=== PATIENT | female | born 1950 | race Caucasian/White ===

== ENCOUNTER 2024-07-11 16:30 | Outpatient (RCR) | payer MEDICARE, OTHER, SELFPAY | END 2024-08-13 11:29 | disposition home or self-care (01) | LOC: PT 16:30 | PROVIDERS: Visit Provider Physical Medicine & Rehabilitation | DX: R26.9 Unspecified abnormalities of gait and mobility (principal) | CPT/HCPCS: 97110; 97112; 97163 ==

== ENCOUNTER 2024-07-18 14:49 | Emergency (ER) | payer MEDICARE, OTHER, SELFPAY ==
[2024-07-18 15:15] VITALS: BP 173/88; PULSE 112; RESP 20; TEMP 36.7; O2SAT 95; BMI 31.0
[2024-07-18 15:25] LABS: Apearance,Urine Clear (Clear); Color,Urine Dark Yellow (Yellow)
[2024-07-18 15:26] LABS: Bilirubin,Urine 1+ (Negative); Blood, Urine 3+ (Negative); Glucose,Urine (UA) Negative (Negative); Ketones,Urine TRACE (Negative); Protein,Urine 3+ (Negative); Specific Gravity, Urine 1.025 (1.005-1.030); UTC Leukocyte Esterase,Urine 1+ (Negative); UTC Nitrate,Urine Negative (Negative); Urobilinogen,Urine 0.2 EU/dl (0.2)
--- NOTE | 2024-07-18 15:30 | ED_ITS ---
Discharge Plan Disposition Patient Disposition: Home, Self-Care Condition: Good Prescriptions Prescriptions: New sulfamethoxazole-trimethoprim [Bactrim] 400-80 mg tablet 1 tab PO BID 5 Days Qty: 10 0RF No Action hydrocodone-acetaminophen 7.5-325 mg tablet 1 tab PO DAILY Patient Comments: TAKE 1 TABLET BY MOUTH ONCE DAILY FOR 30 DAYS furosemide 40 mg Tablet 40 mg PO DAILY sucralfate 1 gram Tablet 1 g PO BID alendronate 70 mg Tablet 70 mg PO WEEKLY hydroxyzine HCl 50 mg Tablet 50 mg PO HS levetiracetam 250 mg Tablet 250 mg PO BID cyanocobalamin (vitamin B-12) 1,000 mcg/mL Solution 1,000 mcg IM WEEKLY duloxetine [Cymbalta] 30 mg Capsule,Delayed Release(Dr/Ec) 30 mg PO DAILY duloxetine [Cymbalta] 60 mg Capsule,Delayed Release(Dr/Ec) 60 mg PO DAILY Trulicity 0.75 mg/0.5 mL Pen Injector 0.75 mg SQ WEEKLY Referrals Follow up/Referrals: Provider,Referral, MD [Primary Care Provider] - See instructions Activity Restrictions/Add. Instructions Additional Instructions/Restrictions: *Increase fluids. Water not Soda or Tea *Start antibiotic immediately and be sure to take as ordered for the FULL length of time although you should start to see improvement over the next 48 hours *Be SURE to follow up anytime for new or worsening symptoms with your family doctor. AND in 48 hours for urine culture results with your family doctor, if you do not have a doctor then you may call back to the [facility] for urine culture results and further treatment. We do recommend that you choose and establish care with a Primary Care Physician. ?AND follow up with them ?in 10-14 days to repeat UA to ensure infection is resolved and blood no longer present *Be sure to let your PCP know that we sent urine cultures from the [facility] so they can follow up to ensure that you area the on the correct antibiotic Call your doctor office and make appointment for 48 hours (2 days from today) ?to follow up and get the results of your urine culture and further treatment Monitor your blood sugars as instructed Straight to ER if any worsening of symptoms or any life threatening symptoms Clinical Impressions Clinical Impression: UTI (urinary tract infection) Qualifiers: Urinary tract infection type: site unspecified Hematuria presence: with hematuria Qualified Code(s): N39.0 - Urinary tract infection, site not specified Instructions Patient Instructions: DI for Urinary Tract Infection (UTI), DI for COVID-19 (Suspected or Confirmed ) Print Language Print Language: Bengali Discharge ED Provider: Rose Mary Crowe [facility] HPI General Stated complaint: weak, soa, poss uti Mode of Arrival: Ambulatory Source of Information: Patient Limitations: No Limitations Time Seen by Provider: 07/18/24 15:30 Description of Symptoms (Recalled from Triage Doc. by RN): PATIENT C/O VOMITING, FEELING LIGHT-HEADED, CHILLS, AND REPORTS THAT HER URINE IS DARK/LAURA HEENT Symptoms (Recalled from RN notes): Yes Resp Symptoms (Recalled from RN notes): No Skin Symptoms (Recalled from RN notes): No MS Symptoms (Recalled from RN notes): No Functional Status (Recalled from RN notes): WNL History of Present Illness Provider Complaint: Patient states that she is worried that she may have COVID she hasnt been feeling well for the last couple of days with body aches, chills, nausea, and had a low grade fever and her friends brother is taking care of sick family member and she wanted to get tested for COVID States also she noticed her urine was looking dark and she sometimes gets UTI's Wanted to get checked for that too Related Data Home Medications ?Medication ?Instructions ?Recorded ?Confirmed alendronate 70 mg tablet 70 mg PO WEEKLY 07/18/24 07/18/24 cyanocobalamin (vitamin B-12) 1,000 mcg IM WEEKLY 07/18/24 07/18/24 1,000 mcg/mL injection solution dulaglutide 0.75 mg/0.5 mL 0.75 mg SQ WEEKLY 07/18/24 07/18/24 subcutaneous pen injector (Trulicity) duloxetine 30 mg capsule,delayed 30 mg PO DAILY 07/18/24 07/18/24 release (Cymbalta) duloxetine 60 mg capsule,delayed 60 mg PO DAILY 07/18/24 07/18/24 release (Cymbalta) furosemide 40 mg tablet 40 mg PO DAILY 07/18/24 07/18/24 hydrocodone 7.5 mg-acetaminophen 1 tab PO DAILY 07/18/24 07/18/24 325 mg tablet hydroxyzine HCl 50 mg tablet 50 mg PO HS 07/18/24 07/18/24 levetiracetam 250 mg tablet 250 mg PO BID 07/18/24 07/18/24 sucralfate 1 gram tablet 1 g PO BID 07/18/24 07/18/24 Previous Rx's ?Medication ?Instructions ?Recorded sulfamethoxazole 400 1 tab PO BID 5 days #10 tabs 07/18/24 mg-trimethoprim 80 mg tablet (Bactrim) Allergies Allergy/AdvReac Type Severity Reaction Status Date / Time latex Allergy Verified 07/18/24 15:25 Worker's Comp Is this a Worker's Comp case?: [facility] Dis[facility]: The information contained in this section may have been updated after the patient was seen, as this information can be updated by other users. Medical History (Updated 07/18/24 @ 15:48 by Rose Mary Crowe APRN) Urinary tract infection Depression Anxiety Diabetes mellitus, type 2 History of stroke Surgical History (Updated 07/18/24 @ 15:27 by Erinn Honeycutt RN) History of hysterectomy Social History Smoking Status: Unknown if ever smoked alcohol intake: never current occupational status: unemployed Travel in the last 8 weeks: None ROS Obtained: Yes All systems reviewed & no additional complaints except as documented and Yes Systems reviewed as appropriate & no additional complaints except as documented Constitutional Constitutional: Reports system reviewed and no additional complaints, except as documented, Reports as per HPI, Reports body ache, Reports chills and Reports fe xochilt(s) ENT Ears, Nose, Mouth, and Throat: Reports system reviewed and no additional complaints, except as documented, Reports as per HPI, Reports nasal congestion, Reports nasal discharge and Reports sore throat (throat feels itchy) Cardiovascular Cardiovascular: Reports system reviewed and no additional complaints, except as documented and Reports as per HPI Respiratory Respiratory: Reports system reviewed and no additional complaints, except as do cumented and Reports as per HPI Gastrointestinal Gastrointestingal: Reports system reviewed and no additional complaints, except as documented, as per HPI, nausea and vomiting (not today); Denies abdominal pain, cramping or diarrhea Genitourinary Female Genitourinary: Reports system reviewed and no additional complaints, except as documented, Reports as per HPI, Reports urinary urgency and Reports other (urine looks dark ) Physical Exam General General appearance: alert and in no apparent distress ENT ENT exam: Present mucous membranes moist Expanded ENT Exam Nose exam: Absent sinus tenderness Throat exam: Present other (mild pharyngeal erythema noted) Respiratory Respiratory exam: Present normal lung sounds bilaterally; Absent respiratory distress or wheezes Cardiovascular Cardiovascular exam: Present regular rate, normal rhythm and tachycardia Neurological Exam Neurological exam: Present alert, oriented X3 and normal gait Medical Decision Making Jareth Inquiry Pt receiving controlled substance: No Jareth was queried for this patient: No Vital Signs: 07/18/24 15:15 Temperature 98.0 F Temperature Source Oral Pulse Rate [Left Brachial] 112 H Respiratory Rate 20 Blood Pressure [Left Arm] 173/88 H Blood Pressure Mean [Left Arm] 116 Blood Pressure Source [Left Arm] Automatic Cuff Blood Pressure Position [Left Arm] Sitting 02 Sat by Pulse Oximetry 95 Oxygen Delivery Method Room Air Lab Data Lab results reviewed: Yes I reviewed the patient's lab results. Lab Results 07/18/24 15:24: Urine Color Dark yellow, Urine Appearance Clear, Urine pH 5.0, Ur Specific [place] 1.025, Urine Protein 3+, Urine Glucose (UA) Negative, Urine Ketones Trace, Urine Blood 3+, Urine Nitrate Negative, Urine Bilirubin 1+ A, Urine Urobilinogen 0.2, Ur Leukocyte Esterase 1+ A Orders (Tests/Meds): ORDERS Category Date Time Status Urine Culture Stat Micro 07/18/24 15:10 Received Medical Decision Narrative: 3+ protien noted in urine, patient is a diabetic however discussed with patient about transfer to the ED for more extensive work up and evaluation and she declined
[2024-07-18 15:50] VITALS: BP 173/88; PULSE 112; RESP 20; TEMP 36.7; O2SAT 95
[2024-07-18 15:59] LABS: Coronavirus 19, PCR Not Detected (NotDetected); Influenza A, PCR Not Detected (NotDetected); Influenza B, PCR Not Detected (NotDetected)
--- NOTE | 2024-07-20 10:55 | PC.NURSE ---
REVIEWED URINE CULTURE WITH Cornelius NAILS APRN, NO CHANGE NEEDED AT THIS TIME
--- NOTE | 2024-07-22 13:01 | PC.NURSE ---
URINE CULTURE RESULTS REVIEWED BY Alyx KNUTSON APRN, NO CHANGES NEEDED AT THIS TIME
== END 2024-07-18 15:56 | disposition home or self-care (01) ==
PROVIDERS: Emergency Provider Nurse Practitioner
DX: N39.0 Urinary tract infection, site not specified (principal); B96.89 Other specified bacterial agents as the cause of diseases classified elsewhere; R50.9 Fever, unspecified; R11.0 Nausea
CPT/HCPCS: 81003; 87086; 87088; 87186; 87636; 99204; 99212; G0463

== ENCOUNTER 2024-07-21 10:59 | Emergency (ER) | payer MEDICARE, OTHER, SELFPAY ==
[2024-07-21] VITALS (19 sets, daily range): BP systolic 113–153; BP diastolic 59–80; PULSE 59–93; RESP 15–22; TEMP 36.7; O2SAT 90–100; BMI 31.0
--- NOTE | 2024-07-21 11:03 | ED_ITS ---
Discharge Plan Disposition Patient Disposition: Xfer Short-Term Hosp Chief Complaint: Weakness Prescriptions Prescriptions: No Action hydrocodone-acetaminophen 7.5-325 mg tablet 1 tab PO DAILY Patient Comments: TAKE 1 TABLET BY MOUTH ONCE DAILY FOR 30 DAYS furosemide 40 mg Tablet 40 mg PO DAILY sucralfate 1 gram Tablet 1 g PO BID alendronate 70 mg Tablet 70 mg PO WEEKLY hydroxyzine HCl 50 mg Tablet 50 mg PO HS levetiracetam 250 mg Tablet 250 mg PO BID cyanocobalamin (vitamin B-12) 1,000 mcg/mL Solution 1,000 mcg IM WEEKLY duloxetine [Cymbalta] 30 mg Capsule,Delayed Release(Dr/Ec) 30 mg PO DAILY duloxetine [Cymbalta] 60 mg Capsule,Delayed Release(Dr/Ec) 60 mg PO DAILY Trulicity 0.75 mg/0.5 mL Pen Injector 0.75 mg SQ WEEKLY sulfamethoxazole-trimethoprim [Bactrim] 400-80 mg tablet 1 tab PO BID 5 Days Qty: 10 0RF Referrals Follow up/Referrals: Provider,Referral, MD [Primary Care Provider] - See instructions Clinical Impressions Clinical Impression: UTI (urinary tract infection), Acute hepatic failure, Acute hypokalemia, Acute hyponatremia, CHF exacerbation Stand Alone Forms Stand Alone Forms: Transfer Record - ED Print Language Print Language: Uzbek Discharge ED Provider: Daniel Carcamo General Adult HPI <Serafin Pagan MD - Last Filed: 07/21/24 16:16> General Chief complaint: Weakness Stated complaint: weakness Time Seen by Provider: 07/21/24 11:03 History of Present Illness HPI narrative: The patient presents with a chief complaint of disorientation, lack of strength, and inability to stand without assistance, which began today. She also reports a loss of appetite and has a history of stroke and is concerned about having another one. She has been feeling unwell for a couple of weeks, initially presenting with a bladder infection and dark lakisha-colored urine. She was prescribed antibiotics for the infection but has not seen a doctor for follow-up. She denies pain with urination. She reports a history of falls, having fallen off the toilet twice in the past week. Extension handles were installed to assist with mobility, and she has been doing better since then. Her mobility has declined since the onset of the urinary infection, and she is now unable to get up without assistance. She denies any upper respiratory symptoms or coughing. She has a history of a heart murmur and sleep in a recliner due to acid reflux. She reports weakness on the left side of her body, which is consistent with her previous stroke. She has had recent changes in medications, including antibiotics and an EpiPen for diabetes and weight loss. She denies having COPD or smoking. She reports more upper respiratory symptoms two weeks ago, but no current shortness of breath, leg pain, swelling, or abdominal pain. The patient's caregiver reports that when she woke up today, she was in a fog and didn't recognize the caregiver. She was unable to provide information about her medications. The caregiver also mentions that she has a history of bilateral knee replacement, during which she had a stroke two days later. She has been sleeping in a recliner due to acid reflux. Please note that above description of symptoms, in this electronic medical record under categorization of recalled from ER triage doctor by RN are reflective of an initial nursing assessment, however, is not reflective of my full history and physical exam that was personally taken and clarified. Consequentially, this preceding description of symptoms, which may include the patient's categorized chief complaint in the EMR, do not reflect my personal clinical impression, and the ultimate description of history of present illness and patient stated complaints should be deferred to this section of the note. Unless stated otherwise or congruent with this section of the note, additional signs, symptoms, or incongruence should be interpreted as inaccurate with my clinical impression. Related Data Home Medications ?Medication ?Instructions ?Recorded ?Confirmed alendronate 70 mg tablet 70 mg PO WEEKLY 07/18/24 07/18/24 cyanocobalamin (vitamin B-12) 1,000 mcg IM WEEKLY 07/18/24 07/18/24 1,000 mcg/mL injection solution dulaglutide 0.75 mg/0.5 mL 0.75 mg SQ WEEKLY 07/18/24 07/18/24 subcutaneous pen injector (Trulicity) duloxetine 30 mg capsule,delayed 30 mg PO DAILY 07/18/24 07/18/24 release (Cymbalta) duloxetine 60 mg capsule,delayed 60 mg PO DAILY 07/18/24 07/18/24 release (Cymbalta) furosemide 40 mg tablet 40 mg PO DAILY 07/18/24 07/18/24 hydrocodone 7.5 mg-acetaminophen 1 tab PO DAILY 07/18/24 07/18/24 325 mg tablet hydroxyzine HCl 50 mg tablet 50 mg PO HS 07/18/24 07/18/24 levetiracetam 250 mg tablet 250 mg PO BID 07/18/24 07/18/24 sucralfate 1 gram tablet 1 g PO BID 07/18/24 07/18/24 Previous Rx's ?Medication ?Instructions ?Recorded sulfamethoxazole 400 1 tab PO BID 5 days #10 tabs 07/18/24 mg-trimethoprim 80 mg tablet (Bactrim) Allergies Allergy/AdvReac Type Severity Reaction Status Date / Time latex Allergy Verified 07/18/24 15:25 PFS <Serafin Pagan MD - Last Filed: 07/21/24 16:16> [facility] Disclaimer: The information contained in this section may have been updated after the patient was seen, as this information can be updated by other users. Medical History (Updated 07/21/24 @ 18:34 by Daniel Carcamo MD) Urinary tract infection Depression Anxiety Diabetes mellitus, type 2 History of stroke Surgical History (Updated 07/18/24 @ 15:27 by Erinn Honeycutt RN) History of hysterectomy Social History (Updated 07/18/24 @ 18:57 by Rose Mary Crowe APRN) Smoking Status: Never smoker alcohol intake: never current occupational status: unemployed Travel in the last 8 weeks: None <Serafin Pagan MD - Last Filed: 07/21/24 16:16> ROS Obtained: Yes other As per HPI Physical Exam <Serafin Pagan MD - Last Filed: 07/21/24 16:16> General General appearance: alert and in no apparent distress Head Head exam: atraumatic and normocephalic Eye Eye exam: Present normal appearance Neck Neck exam: Present normal inspection Chest Chest inspection: Present normal inspection and symmetric chest wall rise Respiratory Respiratory exam: Present normal lung sounds bilaterally; Absent respiratory distress Cardiovascular Cardiovascular exam: Present regular rate and normal rhythm Abdominal Exam Abdominal exam: Present soft Neurological Exam Neurological exam: Present alert and oriented X3 Psychiatric Psychiatric exam: Present normal affect and normal mood Skin Skin exam: Present warm and dry Other Other exam information: No cranial nerve deficit, no focal motor weakness appreciated, no dysmetria, no dysdiadochokinesia, no rebound phenomenon, no abdominal tenderness to palpation. Trace bilateral lower extremity edema Medical Decision Making <Serafin Pagan MD - Last Filed: 07/21/24 16:16> Medical Records Medical records reviewed: Yes I reviewed the patient's medical records. Jareth Inquiry Pt receiving controlled substance: No Vital Signs: 07/21/24 11:00 Temperature 98.1 F Temperature Source Oral Pulse Rate [Right] 90 Respiratory Rate 18 Blood Pressure [Right Arm] 115/59 L Blood Pressure Mean [Right Arm] 77 Blood Pressure Source [Right Arm] Automatic Cuff 02 Sat by Pulse Oximetry 95 Oxygen Delivery Method Room Air Lab Data Lab Results 07/21/24 11:18: WBC 10.7, RBC 3.51 L, Hgb 12.3, Hct 38.7, MCV 110.3 H, MCH 35.0 H, MCHC 31.7 L, RDW 14.8, Plt Count 386, MPV 9.0, Neut % (Auto) 88.0 H, Lymph % (Auto) 6.4 L, Ashe % (Auto) 4.3, Eos % (Auto) 1.0, Baso % (Auto) 0.3, Neut # (Auto) 9.4 H, Lymph # (Auto) 0.7, Ashe # (Auto) 0.5, Eos # (Auto) 0.1, Baso # (Auto) 0.0, Total Counted 100, Neutrophils % (Manual) 89 H, Lymphocytes % (Manual) 6 L, Monocytes % (Manual) 4, Eosinophils % (Manual) 1, Nucleated RBCs 2, Platelet Estimate Normal, Hypochromasia 1+, Anisocytosis 1+, Macrocytosis 1+, PT 12.4, INR 1.12 H, Sodium 120 L, Potassium 3.0 L, Chloride 84 L, Carbon Dioxide 22, Anion Gap 17.0 H, BUN 33 H, Creatinine 2.00 H, Estimated Creat Clear 35, Estimated GFR 24 L, Est GFR ( Amer) 29 L, Glucose 134 H, Calcium 7.7 L, Magnesium 1.6, Total Bilirubin 3.2 H, AST 149 H, ALT 70, Alkaline Phosphatase 266 H, Total Creatine Kinase 48, NT-Pro-B Natriuret Pep 2220 H, Total Protein 6.9, Albumin 3.5, Globulin 3.4 H, Albumin/Globulin Ratio 1.0 L, Lipase 171, TSH 0.55, Free T4 1.70, Plasma/Serum Alcohol < 10, Acetone Level None detected 07/21/24 11:29: VBG pH 7.35, VBG pCO2 37.9, VBG pO2 45.8 H, VBG HCO3 20.3 L, VBG Total CO2 21.4 L, VBG O2 Saturation 77.0 H, VBG Base Excess -5.4 L, VBG Lactic Acid 3.3 H 07/21/24 12:14: SARS-CoV-2 (PCR) Not detected, Influenza A Untype (PCR) Not detected, Influenza Type B (PCR) Not detected 07/21/24 14:40: Urine Color Yellow, Urine Appearance Clear, Urine pH 6.0, Ur Specific Hancock 1.015, Urine Protein Negative, Urine Glucose (UA) Negative, Urine Ketones Negative, Urine Blood Trace-i, Urine Nitrate Negative, Urine Bilirubin Negative, Urine Urobilinogen 0.2, Ur Leukocyte Esterase 2+ A, Urine RBC None, Urine WBC 10-20, Ur Squamous Epith Cells 5-10, Urine Bacteria 1+, U rine Opiates Screen Positive H, Urine Methadone Screen Negative, Ur Barbituates Screen Negative, Ur Phencyclidine Scrn Negative, Ur Amphetamines Screen Negative, U Benzodiazepines Scrn Negative, Urine Cocaine Screen Negative, U Marijuana (THC) Screen Negative 07/21/24 11:18 07/21/24 11:18 Orders (Tests/Meds): ED MEDICATIONS Discontinued Medications Generic Name Dose Route Start Last Admin Trade Name Freq PRN Reason Stop Dose Admin Lactated Ringer's 1,000 mls @ 999 mls/hr 07/21/24 11:26 07/21/24 12:13 Lactated Ringer's 1000 Ml Bag IV 07/21/24 12:26 999 mls/hr .Q1H1M ONE Administration Ondansetron HCl 4 mg 07/21/24 15:58 07/21/24 16:46 Ondansetron 4mg/2ml Vial IV 07/21/24 15:59 4 mg ONCE ONE Administration Potassium Chloride 60 meq 07/21/24 15:58 07/21/24 16:46 Potassium Chloride 20meq Tab PO 07/21/24 15:59 60 meq ONCE ONE Administration ORDERS Category Date Time Status CT abdomen pelvis wo con Stat Cat Scan 07/21/24 13:[address] chest wo con Stat Cat Scan 07/21/24 14:[address] head/brain wo con Stat Cat Scan 07/21/24 11:27 Completed XR chest portable Stat Exams 07/21/24 11:29 Completed Acetone, Serum (Rapid) Stat Lab 07/21/24 11:18 Completed BNP [NT Pro Brain Natriuretic Pep.] Stat Lab 07/21/24 11:18 Completed CBC w/Auto Diff [Complete Blood Count Auto Diff] Stat Lab 07/21/24 11:18 Completed CK [Creatine Kinase] Stat Lab 07/21/24 11:18 Completed CMP [Comprehensive Metabolic Panel] Stat Lab 07/21/24 11:18 Completed Drug Screen,Urine Stat Lab 07/21/24 14:40 Completed Ethanol [Ethyl Alcohol] Stat Lab 07/21/24 11:18 Completed Free T4 (Free Thyroxine) Stat Lab 07/21/24 11:18 Completed INR [Prothrombin Time INR] Stat Lab 07/21/24 11:18 Completed Lactic Acid Follow Up (RFLX 1) Stat Lab 07/21/24 15:58 Ordered Lipase Stat Lab 07/21/24 11:18 Completed MAG [Magnesium] Stat Lab 07/21/24 11:18 Completed Osmolality Stat Lab 07/21/24 11:18 Received Rapid PCR Covid and Flu A/B Stat Lab 07/21/24 12:14 Completed TSH [Thyroid Stimulating Hormone] Stat Lab 07/21/24 11:18 Completed Urinalysis and Microscopic Stat Lab 07/21/24 14:40 Completed Urine Culture Stat Micro 07/21/24 14:40 Received VBG [Venous Blood Gas] Stat RT 07/21/24 11:29 Completed Medical Decision Narrative: Patient with history and exam per above presenting for evaluation of altered mental status Diagnoses considered include electrolyte abnormality, bacteremia, intracranial hemorrhage, acidosis, acute kidney injury, among others ED workup and treatment included: ED MEDICATIONS Discontinued Medications Generic Name Dose Route Start Last Admin Trade Name Freq PRN Reason Stop Dose Admin Lactated Ringer's 1,000 mls @ 999 mls/hr 07/21/24 11:26 07/21/24 12:13 Lactated Ringer's 1000 Ml Bag IV 07/21/24 12:26 999 mls/hr .Q1H1M ONE Administration Ondansetron HCl 4 mg 07/21/24 15:58 Ondansetron 4mg/2ml Vial IV 07/21/24 15:59 ONCE ONE Potassium Chloride 60 meq 07/21/24 15:58 Potassium Chloride 20meq Tab PO 07/21/24 15:59 ONCE ONE ORDERS Category Date Time Status CT abdomen pelvis wo con Stat Cat Scan 07/21/24 13:[address] chest wo con Stat Cat Scan 07/21/24 14:[address] head/brain wo con Stat Cat Scan 07/21/24 11:27 Completed XR chest portable Stat Exams 07/21/24 11:29 Completed Acetone, Serum (Rapid) Stat Lab 07/21/24 11:18 Completed BNP [NT Pro Brain Natriuretic Pep.] Stat Lab 07/21/24 11:18 Completed CBC w/Auto Diff [Complete Blood Count Auto Diff] Stat Lab 07/21/24 11:18 Completed CK [Creatine Kinase] Stat Lab 07/21/24 11:18 Completed CMP [Comprehensive Metabolic Panel] Stat Lab 07/21/24 11:18 Completed Drug Screen,Urine Stat Lab 07/21/24 14:40 Completed Ethanol [Ethyl Alcohol] Stat Lab 07/21/24 11:18 Completed Free T4 (Free Thyroxine) Stat Lab 07/21/24 11:18 Completed Lactic Acid Follow Up (RFLX 1) Stat Lab 07/21/24 15:58 Ordered Lipase Stat Lab 07/21/24 11:18 Completed MAG [Magnesium] Stat Lab 07/21/24 11:18 Completed Osmolality Stat Lab 07/21/24 11:18 Received Rapid PCR Covid and Flu A/B Stat Lab 07/21/24 12:14 Completed TSH [Thyroid Stimulating Hormone] Stat Lab 07/21/24 11:18 Completed Urinalysis and Microscopic Stat Lab 07/21/24 14:40 Completed Urine Culture Stat Micro 07/21/24 14:40 Received VBG [Venous Blood Gas] Stat RT 07/21/24 11:29 Completed Labs were independently interpreted by me, significant for creatinine 2.0, BUN 33, BNP 2220, urinalysis with 2+ leukocyte esterase, 1+ bacteriuria, UDS presumptive positive for opiates, no acidosis on blood gas, hypokalemia, hyponatremia to 120 Imaging pending at this time. Please refer to radiology report for full details. Patient will benefit from admission for further management of acute kidney injury and altered mental status, likely secondary to multiple metabolic derangements including hyponatremia <Ross A Carlos Alberto, MD - Last Filed: 07/21/24 18:34> Vital Signs: 07/21/24 11:00 Temperature 98.1 F Temperature Source Oral Pulse Rate [Right] 90 Respiratory Rate 18 Blood Pressure [Right Arm] 115/59 L Blood Pressure Mean [Right Arm] 77 Blood Pressure Source [Right Arm] Automatic Cuff 02 Sat by Pulse Oximetry 95 Oxygen Delivery Method Room Air Lab Data Lab Results 07/21/24 11:18: WBC 10.7, RBC 3.51 L, Hgb 12.3, Hct 38.7, MCV 110.3 H, MCH 35.0 H, MCHC 31.7 L, RDW 14.8, Plt Count 386, MPV 9.0, Neut % (Auto) 88.0 H, Lymph % (Auto) 6.4 L, Ashe % (Auto) 4.3, Eos % (Auto) 1.0, Baso % (Auto) 0.3, Neut # (Auto) 9.4 H, Lymph # (Auto) 0.7, Ashe # (Auto) 0.5, Eos # (Auto) 0.1, Baso # (Auto) 0.0, Total Counted 100, Neutrophils % (Manual) 89 H, Lymphocytes % (Manual) 6 L, Monocytes % (Manual) 4, Eosinophils % (Manual) 1, Nucleated RBCs 2, Platelet Estimate Normal, Hypochromasia 1+, Anisocytosis 1+, Macrocytosis 1+, PT 12.4, INR 1.12 H, Sodium 120 L, Potassium 3.0 L, Chloride 84 L, Carbon Dioxide 22, Anion Gap 17.0 H, BUN 33 H, Creatinine 2.00 H, Estimated Creat Clear 35, Estimated GFR 24 L, Est GFR ( Amer) 29 L, Glucose 134 H, Calcium 7.7 L, Magnesium 1.6, Total Bilirubin 3.2 H, AST 149 H, ALT 70, Alkaline Phosphatase 266 H, Total Creatine Kinase 48, NT-Pro-B Natriuret Pep 2220 H, Total Protein 6.9, Albumin 3.5, Globulin 3.4 H, Albumin/Globulin Ratio 1.0 L, Lipase 171, TSH 0.55, Free T4 1.70, Plasma/Serum Alcohol < 10, Acetone Level None detected 07/21/24 11:29: VBG pH 7.35, VBG pCO2 37.9, VBG pO2 45.8 H, VBG HCO3 20.3 L, VBG Total CO2 21.4 L, VBG O2 Saturation 77.0 H, VBG Base Excess -5.4 L, VBG Lactic Acid 3.3 H 07/21/24 12:14: SARS-CoV-2 (PCR) Not detected, Influenza A Untype (PCR) Not detected, Influenza Type B (PCR) Not detected 07/21/24 14:40: Urine Color Yellow, Urine Appearance Clear, Urine pH 6.0, Ur Specific Hancock 1.015, Urine Protein Negative, Urine Glucose (UA) Negative, Urine Ketones Negative, Urine Blood Trace-i, Urine Nitrate Negative, Urine Bilirubin Negative, Urine Urobilinogen 0.2, Ur Leukocyte Esterase 2+ A, Urine RBC None, Urine WBC 10-20, Ur Squamous Epith Cells 5-10, Urine Bacteria 1+, U rine Opiates Screen Positive H, Urine Methadone Screen Negative, Ur Barbituates Screen Negative, Ur Phencyclidine Scrn Negative, Ur Amphetamines Screen Negative, U Benzodiazepines Scrn Negative, Urine Cocaine Screen Negative, U Marijuana (THC) Screen Negative Orders (Tests/Meds): ED MEDICATIONS Discontinued Medications Generic Name Dose Route Start Last Admin Trade Name Freq PRN Reason Stop Dose Admin Lactated Ringer's 1,000 mls @ 999 mls/hr 07/21/24 11:26 07/21/24 12:13 Lactated Ringer's 1000 Ml Bag IV 07/21/24 12:26 999 mls/hr .Q1H1M ONE Administration Ondansetron HCl 4 mg 07/21/24 15:58 07/21/24 16:46 Ondansetron 4mg/2ml Vial IV 07/21/24 15:59 4 mg ONCE ONE Administration Potassium Chloride 60 meq 07/21/24 15:58 07/21/24 16:46 Potassium Chloride 20meq Tab PO 07/21/24 15:59 60 meq ONCE ONE Administration ORDERS Category Date Time Status CT abdomen pelvis wo con Stat Cat Scan 07/21/24 13:[address] chest wo con Stat Cat Scan 07/21/24 14:[address] head/brain wo con Stat Cat Scan 07/21/24 11:27 Completed XR chest portable Stat Exams 07/21/24 11:29 Completed Acetone, Serum (Rapid) Stat Lab 07/21/24 11:18 Completed BNP [NT Pro Brain Natriuretic Pep.] Stat Lab 07/21/24 11:18 Completed CBC w/Auto Diff [Complete Blood Count Auto Diff] Stat Lab 07/21/24 11:18 Completed CK [Creatine Kinase] Stat Lab 07/21/24 11:18 Completed CMP [Comprehensive Metabolic Panel] Stat Lab 07/21/24 11:18 Completed Drug Screen,Urine Stat Lab 07/21/24 14:40 Completed Ethanol [Ethyl Alcohol] Stat Lab 07/21/24 11:18 Completed Free T4 (Free Thyroxine) Stat Lab 07/21/24 11:18 Completed INR [Prothrombin Time INR] Stat Lab 07/21/24 11:18 Completed Lactic Acid Follow Up (RFLX 1) Stat Lab 07/21/24 15:58 Ordered Lipase Stat Lab 07/21/24 11:18 Completed MAG [Magnesium] Stat Lab 07/21/24 11:18 Completed Osmolality Stat Lab 07/21/24 11:18 Received Rapid PCR Covid and Flu A/B Stat Lab 07/21/24 12:14 Completed TSH [Thyroid Stimulating Hormone] Stat Lab 07/21/24 11:18 Completed Urinalysis and Microscopic Stat Lab 07/21/24 14:40 Completed Urine Culture Stat Micro 07/21/24 14:40 Received VBG [Venous Blood Gas] Stat RT 07/21/24 11:29 Completed Medical Decision Narrative: Patient with history and exam per above presenting for evaluation of altered mental status Diagnoses considered include electrolyte abnormality, bacteremia, intracranial hemorrhage, acidosis, acute kidney injury, among others ED workup and treatment included: ED MEDICATIONS Discontinued Medications Generic Name Dose Route Start Last Admin Trade Name Freq PRN Reason Stop Dose Admin Lactated Ringer's 1,000 mls @ 999 mls/hr 07/21/24 11:26 07/21/24 12:13 Lactated Ringer's 1000 Ml Bag IV 07/21/24 12:26 999 mls/hr .Q1H1M ONE Administration Ondansetron HCl 4 mg 07/21/24 15:58 Ondansetron 4mg/2ml Vial IV 07/21/24 15:59 ONCE ONE Potassium Chloride 60 meq 07/21/24 15:58 Potassium Chloride 20meq Tab PO 07/21/24 15:59 ONCE ONE ORDERS Category Date Time Status CT abdomen pelvis wo con Stat Cat Scan 07/21/24 13:[address] chest wo con Stat Cat Scan 07/21/24 14:[address] head/brain wo con Stat Cat Scan 07/21/24 11:27 Completed XR chest portable Stat Exams 07/21/24 11:29 Completed Acetone, Serum (Rapid) Stat Lab 07/21/24 11:18 Completed BNP [NT Pro Brain Natriuretic Pep.] Stat Lab 07/21/24 11:18 Completed CBC w/Auto Diff [Complete Blood Count Auto Diff] Stat Lab 07/21/24 11:18 Completed CK [Creatine Kinase] Stat Lab 07/21/24 11:18 Completed CMP [Comprehensive Metabolic Panel] Stat Lab 07/21/24 11:18 Completed Drug Screen,Urine Stat Lab 07/21/24 14:40 Completed Ethanol [Ethyl Alcohol] Stat Lab 07/21/24 11:18 Completed Free T4 (Free Thyroxine) Stat Lab 07/21/24 11:18 Completed Lactic Acid Follow Up (RFLX 1) Stat Lab 07/21/24 15:58 Ordered Lipase Stat Lab 07/21/24 11:18 Completed MAG [Magnesium] Stat Lab 07/21/24 11:18 Completed Osmolality Stat Lab 07/21/24 11:18 Received Rapid PCR Covid and Flu A/B Stat Lab 07/21/24 12:14 Completed TSH [Thyroid Stimulating Hormone] Stat Lab 07/21/24 11:18 Completed Urinalysis and Microscopic Stat Lab 07/21/24 14:40 Completed Urine Culture Stat Micro 07/21/24 14:40 Received VBG [Venous Blood Gas] Stat RT 07/21/24 11:29 Completed Labs were independently interpreted by me, significant for creatinine 2.0, BUN 33, BNP 2220, urinalysis with 2+ leukocyte esterase, 1+ bacteriuria, UDS presumptive positive for opiates, no acidosis on blood gas, hypokalemia, hyponatremia to 120 Imaging pending at this time. Please refer to radiology report for full details. Patient will benefit from admission for further management of acute kidney injury and altered mental status, likely secondary to multiple metabolic derangements including hyponatremia Carlos Alberto: I assumed primary responsibility for this patient after signout from previous physician. On my evaluation, patient alert, oriented, chronically ill, but not acutely ill-appearing. Lungs are clear to auscultation, no adventitious lung sounds or focal breath sounds. Cardiopulmonary exam within normal limits, no remarkable lower extremity edema. Pulses are equal and symmetric. Patient grossly neurologically intact and symmetric. Has no complaints at this time. Independent interpretation of results demonstrated nonactionable CBC other than elevated MCV 110 likely pointing to malnutrition and B vitamin deficiency. Patient's INR elevated at 1.1. VBG with normal pH 7.35, CO2 normal, bicarb mildly low at 20, lactate 3.3. Patient's sodium low at 120, potassium low 3.0, PAULA with creatinine 2.0 and BUN 33 concerning for intrarenal PAULA. Patient's LFTs concerning for alkaline phosphatase 270, AST 149, total bili 3.2. Urinalysis with leukocyte esterase, patient currently on Bactrim for this. Toxicology screen with opiates. COVID-negative. Tox labs negative. Given this workup, patient's MELD score is 27. 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 Hospital medicine here is contact and case was discussed at length, felt uncomfortable with admission, recommended hospital with hepatology and gastroenterology for further definitive evaluation of patient's symptoms and findings. [facility] was contacted and case was discussed at length, graciously excepted transfer. Because patient high risk for clinical decompensation if discharged, deemed appropriate for transfer and inpatient admission. Results were relayed to patient who voiced understanding and patient was agreeable to transfer, inpatient admission, and management. Patient was graciously accepted and transferred to [facility] for further definitive management, under Dr. Danielson. Critical Care <Serafin Pagan MD - Last Filed: 07/21/24 16:16> Critical Care Time Critical Care Time: No <Daniel Carcamo MD - Last Filed: 07/21/24 18:34> Critical Care Time Critical Care Time: Yes (hepatology) Attestation: On 07/21/24, the high probability of a clinically significant, sudden or life threatening deterioration of the following system(s) required my full and direct attention, intervention and personal management. The time I documented below is in addition to time spent performing reported procedures but includes the following listed in this critical care notation. Total Time Total Critical Care Time: 45
--- NOTE | 2024-07-21 11:04 | ECG_ITS ---
APPROVED REPORT Exam: Resting ECG HR:91 bpm ECG Measurements Heart Rate 91 AXES AR 252 P 69 QRSd 82 QRS 44 QT 363 T 32 QTc 412 Conclusion Sinus rhythm First-degree AV block Electronically signed by : ALONDRA TOM, 07/21/2024 20:09:51
--- NOTE | 2024-07-21 11:27 | CT_ITS ---
PROCEDURE INFORMATION: Exam: CT Head Without Contrast Exam date and time: 07/21/2024 11:44 AM Age: 74 years old Clinical indication: Alteration of consciousness and weakness, extremity; Bilateral; Somnolence (drowsiness); Additional info: AMS this morning, reported weakness TECHNIQUE: Imaging protocol: Computed tomography of the head without contrast. Radiation optimization: All CT scans at this facility use at least one of these dose optimization techniques: automated exposure control; mA and/or kV adjustment per patient size (includes targeted exams where dose is matched to clinical indication); or iterative reconstruction. COMPARISON: No relevant prior studies available. FINDINGS: Brain: There is no mass effect, midline shift, acute hemorrhage, extra-axial fluid collection or acute lobar infarct. Extensive hemispheric white matter hypodensity likely represents chronic microvascular ischemic change. 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 Cerebral ventricles: No ventriculomegaly. Paranasal sinuses: Mucosal thickening is noted within the left maxillary antrum. Mastoid air cells: Visualized mastoid air cells are well aerated. Orbital cavities: The patient is post bilateral cataract surgery. Bones: Unremarkable. No acute fracture. Soft tissues: Unremarkable. IMPRESSION: No acute intracranial process.
--- NOTE | 2024-07-21 11:29 | XR_ITS ---
PROCEDURE INFORMATION: Exam: XR Chest Exam date and time: 07/21/2024 11:39 AM Age: 74 years old Clinical indication: Cough and shortness of breath; Additional info: SOA, cough, generalized weakness TECHNIQUE: Imaging protocol: Radiologic exam of the chest. Views: 1 view. COMPARISON: No relevant prior studies available. FINDINGS: Lungs: The right lung is clear. Pleural spaces: There is blunting of left costophrenic sulcus. Heart/Mediastinum: Unremarkable. No cardiomegaly. Bones/joints: Degenerative changes are noted in the bones. IMPRESSION: Suspect small left pleural effusion.
--- NOTE | 2024-07-21 11:34 | PC.NURSE ---
pt to ct
[2024-07-21 11:36] LABS: Basophils % 0.3 % (0.1-2.0); Eosinophils # 0.1 K/mm3 (0.0-0.4); Hematocrit 38.7 % (37.0-47.0); Hemoglobin 12.3 g/dL (12.2-16.2); Lymphocytes # 0.7 K/mm3 (0.7-4.5); Lymphocytes % 6.4 % (10-50); Mean Corpuscular HGB Conc 31.7 g/dL (31.8-35.4); Mean Corpuscular Volume 110.3 fl (81-99); Monocytes # 0.5 K/mm3 (0.1-1.0); Monocytes % 4.3 % (1.7-9.3); Neutrophils # 9.4 K/mm3 (1.8-7.8); Platelet Count 386 K/mm3 (142-424); Red Blood Count 3.51 M/mm3 (4.20-5.40); Red Cell Distribution Width 14.8 % (11.5-17.5); White Blood Count 10.7 K/mm3 (4.8-10.8)
[2024-07-21 11:38] LABS: Albumin Level 3.5 g/dl (3.5-5.0)
[2024-07-21 11:39] LABS: Chloride 84 mmol/L (98-107); Sodium 120 mmol/L (136-145)
[2024-07-21 11:40] LABS: MANUAL DIFFERENTIAL MANUAL DIFFERENTIAL (MANUAL DIFF)
[2024-07-21 11:41] LABS: Alanine Aminotransferase 70 U/L (12-78); Alkaline Phosphatase 266 U/L (38-126); Aspartate Amino Transferase 149 U/L (14-36); Bilirubin,Total 3.2 mg/dl (0.2-1.3); Blood Urea Nitrogen 33 mg/dl (7-17); Carbon Dioxide 22 mmol/L (22.0-30.0)
[2024-07-21 11:42] LABS: Calcium 7.7 mg/dl (8.4-10.2); Creatine Kinase 48 U/L (30-135); Globulin 3.4 g/dL (1.3-3.2); Glucose 134 mg/dl (74-100); Lipase 171 U/L (23-300); Magnesium 1.6 mg/dl (1.6-2.3); Total Protein,Serum 6.9 g/dl (6.3-8.2)
[2024-07-21 11:51] LABS: NT Pro Brain Natriuretic Pep. 2220 pg/mL (0-125)
[2024-07-21 11:53] LABS: Anisocytosis 1+; Eosinophils % 1 % (0-3); Hypochromasia 1+; Lymphocytes % 6 % (10-50); Macrocytosis 1+; Monocytes % 4 % (2-9); Neutrophils % 89 % (42-76); Nucleated Red Blood Cells 2; Total Cells Counted 100
[2024-07-21 11:54] LABS: Ethyl Alcohol < 10 mg/dl (0-10); Platelet Estimate Normal
[2024-07-21 11:58] LABS: VBG Base Excess -5.4 mmol/L (-2.4-2.3); VBG HCO3 20.3 mmol/L (23-30); VBG PCO2 37.9 mmol/L (35-51); VBG PH 7.35 mmol/L (7.31-7.41); VBG PO2 45.8 mmol/L (28-40); VBG Total CO2 21.4 mmol/L (23-27)
[2024-07-21 11:59] LABS: Lactate Venous 3.3 mmol/L (0.4-2.0)
[2024-07-21 12:06] LABS: Creatinine Clearance Estimated 35 mL/min (50-200); Estimated Glomerular Filt Rate 24 ml/min (>60); GFR (African American) 29 ML/MIN (>60)
--- NOTE | 2024-07-21 12:06 | PC.NURSE ---
CRITICAL K+ 3.0 RECEIVED FROM [facility] IN LAB. PT NAME AND R/V. DR LUCAS NOTIFIED
[2024-07-21 12:13] LABS: Thyroid Stimulating Hormone 0.55 uIU/mL (0.465-4.68)
[2024-07-21] MEDS: LACTATED RINGERS 1000ML 1,000 ML 999 ML IV (12:13)
[2024-07-21 12:18] LABS: Coronavirus 19, PCR Not Detected (NotDetected); Influenza A, PCR Not Detected (NotDetected); Influenza B, PCR Not Detected (NotDetected)
[2024-07-21 12:19] LABS: Acetone, Serum (Rapid) None Detected (None Detect)
--- NOTE | 2024-07-21 13:53 | CT_ITS ---
PROCEDURE INFORMATION: Exam: CT Abdomen And Pelvis Without Contrast Exam date and time: 07/21/2024 3:26 PM Age: 74 years old Clinical indication: Other: Concern for liver pathology, elevated tbili TECHNIQUE: Imaging protocol: Computed tomography of the abdomen and pelvis without contrast. Radiation optimization: All CT scans at this facility use at least one of these dose optimization techniques: automated exposure control; mA and/or kV adjustment per patient size (includes targeted exams where dose is matched to clinical indication); or iterative reconstruction. COMPARISON: CT CHEST WO CON 07/21/2024 3:26 PM FINDINGS: Heart: Valvular and coronary artery calcifications. Liver: Fatty liver without focal lesion evident on nonenhanced study. Lateral segment left lobe is either atretic or has been partially resected in the past. Remainder of the liver is enlarged measuring 22 cm in length. Gallbladder and biliary ducts: Cholecystectomy. Pancreas: Previous resection tail of the pancreas. Spleen: Splenectomy. Adrenal glands: Normal. No mass. Kidneys and ureters: Normal. No hydronephrosis. Stomach and bowel: Previous gastric surgery. Appendix: No evidence of appendicitis. Intraperitoneal space: Unremarkable. No free air. No significant fluid collection. Vasculature: IVC filter. Lymph nodes: Small regenerated splenules versus mildly enlarged lymph nodes left upper quadrant similar previous study, largest 12 mm short axis. Urinary bladder: Unremarkable as visualized. Reproductive: Unremarkable as visualized. Bones/joints: Unremarkable. No acute fracture. Soft tissues: Thin seromas in the subcutaneous fat lateral to both proximal femurs. Other findings: Study limited by lack of contrast. No other acute pathology seen. As above. IMPRESSION: 1. Study limited by lack of contrast. 2. Fatty liver without focal lesion evident on nonenhanced study. Lateral segment left lobe is either atretic or has been partially resected in the past. Remainder of the liver is enlarged measuring 22 cm in length. 3. Small regenerated splenules versus mildly enlarged lymph nodes left upper quadrant similar previous study, largest 12 mm short axis. 4. No other acute pathology seen. As above. COMMENTS: For patients with an IVC filter, recommend assessment for a management plan for the patient's IVC filter. If there is no established management plan, recommend referral to an interventional clinician on a nonemergent basis for evaluation.
--- NOTE | 2024-07-21 14:00 | PC.NURSE ---
community development technician called stating the GFR was 24, Dr. Pagan notified of this and he states ok to change
--- NOTE | 2024-07-21 14:03 | CT_ITS ---
PROCEDURE INFORMATION: Exam: CT Chest Without Contrast; Diagnostic Exam date and time: 07/21/2024 3:26 PM Age: 74 years old Clinical indication: Shortness of breath; Additional info: SOA, cough, indeterminate cxr TECHNIQUE: Imaging protocol: Diagnostic computed tomography of the chest without contrast. Radiation optimization: All CT scans at this facility use at least one of these dose optimization techniques: automated exposure control; mA and/or kV adjustment per patient size (includes targeted exams where dose is matched to clinical indication); or iterative reconstruction. COMPARISON: CT CHEST WO CON 07/21/2024 3:26 PM FINDINGS: Lungs: Mild bronchial wall thickening. This may represent underlying inflammation or infection, or be chronic. Limited atelectasis and pleuroparenchymal scarring. Pleural spaces: No lobar consolidation, pleural effusion or pulmonary edema. Heart: Unremarkable. No cardiomegaly. No pericardial effusion. Lymph nodes: Unremarkable. No enlarged lymph nodes. Vasculature: Unremarkable. No aortic aneurysm. Diaphragm: Elevated right hemidiaphragm. Liver: Fatty liver. Stomach: Previous surgery gastroesophageal junction. There is a standing column of fluid extending to upper 3rd of the chest within the mildly distended esophagus. Bones/joints: Unremarkable. No acute fracture. Soft tissues: Unremarkable. Other findings: Old granulomatous disease. IMPRESSION: 1. Mild bronchial wall thickening. This may represent underlying inflammation or infection, or be chronic. 2. No lobar consolidation, pleural effusion or pulmonary edema. 3. Previous surgery gastroesophageal junction. There is a standing column of fluid extending to upper 3rd of the chest within the mildly distended esophagus.
[2024-07-21 14:58] LABS: Microscopic, Urine URINE MICROSCOPIC (MICROSCOPIC)
[2024-07-21 15:01] LABS: Appearance,Urine CLEAR (Clear); Bilirubin,Urine Negative (Negative); Blood, Urine TRACE-I (Negative); Color,Urine YELLOW (Yellow); Glucose,Urine (UA) Negative (Negative); Ketones,Urine Negative (Negative); Leukocyte Esterase,Urine 2+ (Negative); Nitrate,Urine Negative (Negative); Protein,Urine Negative (Negative); Specific Gravity, Urine 1.015 (1.005-1.030); Urobilinogen,Urine 0.2 EU/dl (0.2)
[2024-07-21 15:14] LABS: Bacteria,Urine 1+ /lpf; Benzodiazepines Screen,Urine Negative ng/ml (<200)
[2024-07-21 15:15] LABS: Amphetamine/Metha Screen,Urine Negative ng/ml (<1000)
[2024-07-21 15:16] LABS: Barbiturates Screen,Urine Negative ng/ml (<200); Cannabinoid Screen,Urine Negative ng/ml (<50)
[2024-07-21 15:17] LABS: Cocaine Screen,Urine Negative ng/ml (<300); Methadone Screen,Urine Negative ng/ml (<300)
[2024-07-21 15:18] LABS: Opiate Screen,Urine Positive ng/ml (<300)
[2024-07-21 15:19] LABS: Phencyclidine Screen,Urine Negative ng/ml (<25)
--- NOTE | 2024-07-21 15:20 | PC.NURSE ---
PT TO CT
--- NOTE | 2024-07-21 15:29 | PC.NURSE ---
PT RETURNED FROM CT
--- NOTE | 2024-07-21 15:48 | PC.NURSE ---
Pt's asking for pt to have food/drink. Dr. Pagan states we need to wait for ct scan reads.
[2024-07-21 15:58] LABS: Reflex Lactic Add Lactic Reflex
--- NOTE | 2024-07-21 16:27 | PC.NURSE ---
pt very hateful and rude to ER staff threatening to take patiuent home briseyda at least she would get food then, pt has been out of room to nurses station several times despite being told by doctor that patient cannot eat.
[2024-07-21] MEDS: POTASSIUM CHLORIDE 20MEQ TAB 60 MEQ PO (16:46)
[2024-07-21] MEDS: ONDANSETRON 4MG/2ML VIAL 4 MG IV (16:46)
--- NOTE | 2024-07-21 17:00 | PC.NURSE ---
NICHOLAS QUILES at bedside for update
[2024-07-21 17:28] LABS: INR 1.12 (0.9-1.1); Prothrombin Time 12.4 seconds (10.1-12.5)
--- NOTE | 2024-07-21 17:37 | PC.NURSE ---
spoke to tx center. they advised they have some trauma calls ahead of us but will call back in maybe 15 minutes
--- NOTE | 2024-07-21 17:55 | PC.NURSE ---
Dr. Carcamo on phone with [facility] in [place]
--- NOTE | 2024-07-21 18:00 | PC.NURSE ---
Dr Carcamo updated pt and her POA that Dr. Danielson has accepted pt to the ER. is unhappy they do not have a dedicated room however he is consents to the transfer. He is asking to transfer the pt POV, however d/t the severe elctrolyte imbalances, states he would like [facility] transport.
--- NOTE | 2024-07-21 19:59 | PC.NURSE ---
Called report to [facility] nurse Herbert
== END 2024-07-21 21:19 | disposition short-term general hospital (02) ==
PROVIDERS: Emergency Medicine; Emergency Provider Emergency Medicine
DX: K72.90 Hepatic failure, unspecified without coma (principal); E87.6 Hypokalemia; E87.1 Hypo-osmolality and hyponatremia; I11.0 Hypertensive heart disease with heart failure; I50.9 Heart failure, unspecified; N39.0 Urinary tract infection, site not specified; B96.89 Other specified bacterial agents as the cause of diseases classified elsewhere
CPT/HCPCS: 70450; 71045; 71250; 74176; 80053; 80307; 80320; 81001; 82009; 82550; 82803; 83690; 83735; 83880; 83930; 84439; 84443; 85007; 85025; 85027; 85610; 87086; 87636; 93005; 96361; 96374; 99285; G0480; J2405; J7120